=== PATIENT | female | born 1970 | race Caucasian/White ===

== ENCOUNTER → 2018-01-27 08:22 | Outpatient (CLI) | payer OTHER, SELFPAY ==
--- NOTE | 2018-01-27 | DI.US.S_ITS ---
ULTRASOUND OF LEFT BREAST: 01/27/2018 CLINICAL: Patient returns today to evaluate a density(mammo) in the left breast near palpable lump. Comparison is made to exams dated: 01/27/2018 mammogram, 06/27/2016 mammogram, and 08/25/2013 mammogram - [facility]. Real-time ultrasound of the left breast was performed on the area of interest. IMPRESSION: PROBABLY BENIGN - FOLLOW-UP RECOMMENDED There is no abnormality seen in the left breast to correspond with the palpable abnormality in the upper inner quadrant, however, clinical followup is recommended. There is no abnormality seen in the left breast to correspond with the mammographic density in the inner aspect. A follow-up mammogram in 6 months is recommended to demonstrate stability. This exam was interpreted at Station ID: [id number]. Electronically Signed By: Mani cueto/lotus:01/27/2018 16:00:59 letter sent: Followup Recommended Ultrasound BI-RADS: 3 Probably benign
--- NOTE | 2018-01-27 | DI.MG.S_ITS ---
BILATERAL DIGITAL DIAGNOSTIC MAMMOGRAM: 01/27/2018 CLINICAL: Left breast lump. Family history of breast cancer. Comparison is made to exams dated: 06/27/2016 mammogram, 08/25/2013 mammogram, and 01/31/2012 mammogram - [facility]. The tissue of both breasts is heterogeneously dense. This may lower the sensitivity of mammography. There is a 0.5 cm oval equal density asymmetry with an indistinct and circumscribed margin in the left breast anterior depth medial region seen on the craniocaudal view only. No other significant masses, calcifications, or other findings are seen in either breast. IMPRESSION: INCOMPLETE: NEEDS ADDITIONAL IMAGING EVALUATION The 0.5 cm oval equal density asymmetry in the left breast is indeterminate. An ultrasound is recommended. The right implant is partially collapsed. A clinical correlation is recommended for further evaluation of the right implant. The right implant shows extracapsular rupture. There is no abnormality seen in the left breast to correspond with the palpable abnormality in the upper inner quadrant, however, ultrasound is recommended. This exam was interpreted at Station ID: [id number]. NOTE: For mammograms, a report in lay terms will be sent to the patient. Approximately 15% of breast malignancies will not be visualized mammographically. In the management of a palpable breast mass, a negative mammogram must not discourage biopsy of a clinically suspicious lesion. Electronically Signed By: Mani cueto/lotus:01/27/2018 09:23:05 letter sent: Need Ultrasound ACR BI-RADS Category 0: Incomplete 3340F
== END ==
PROVIDERS: Family Provider Family Medicine; PCP Family Medicine; Visit Provider Nurse Practitioner Family
DX: R92.8 Other abnormal and inconclusive findings on diagnostic imaging of breast (principal); N63.20 Unspecified lump in the left breast, unspecified quadrant; Z80.3 Family history of malignant neoplasm of breast
CPT/HCPCS: 76642; 77066; G0279

== ENCOUNTER 2019-02-04 04:15 | Emergency (ER) | payer BC, SELFPAY ==
[2019-02-04 04:15] VITALS: BP 154/65; PULSE 68; RESP 18; O2SAT 98; BMI 27.1
--- NOTE | 2019-02-04 04:35 | DI.RAD.S_ITS ---
PROCEDURE: XR CHEST 1V INDICATIONS: chest pain TECHNIQUE: One view of the chest was acquired. COMPARISON: [facility], , CHEST 2 VIEW, 05/24/2010, 9:46. FINDINGS: Surgical changes and devices: None. Lungs and pleura: Lungs are clear. No pleural effusions or pneumothorax. Mediastinum: Mediastinal contours appear normal. Heart size is normal. Bones and chest wall: No suspicious bony lesions. Overlying soft tissues appear unremarkable. IMPRESSION: No acute cardiopulmonary disease process. Dictated by: Priya Montiel MD, PhD on 02/04/2019 at 9:48 Approved by: Priya Montiel MD, PhD on 02/04/2019 at 9:49
--- NOTE | 2019-02-04 04:46 | ED.CHESTPAIN ---
HPI - Chest Pain General Chief Complaint: Chest Pain Stated Complaint: chest pain Time Seen by Provider: 02/04/19 04:17 Source: patient and family Mode of arrival: ambulatory Limitations: no limitations History of Present Illness HPI narrative: 48-year-old female nonsmoker with very minimal medical history presents with a chief complaint of a burning sensation in her anterior chest with radiation to her left shoulder since yesterday at 9:30 a.m. in the morning. She denies any provocation or palliation of her symptoms. She is not dizzy nor weak or lightheaded. She denies any cough or shortness of breath. She has no nausea, vomiting or diarrhea. She denies any injuries or overuse syndromes. She denies any history of the same. She denies any history of blood clot, recent travel, trauma or history of exogenous estrogens, she currently complains only a very minimal sensation in her chest. Her symptoms started while at work yesterday morning MD complaint: chest pain Duration: intermittent and improved Onset: during rest Pain location: left chest Severity: mild Quality: other Pain radiation: LUE Relieving factors: nothing Exacerbating factors: nothing Treatments prior to arrival chest pain: none Related Data On Oral Contraceptives: No Allergies Allergy/AdvReac Type Severity Reaction Status Date / Time No Known Drug Allergies Allergy Verified 02/04/19 05:29 Review of Systems Constitutional Denies chills, Denies fever(s), Denies lethargy and Denies weakness Eyes Denies change in vision, Denies eye discharge, Denies irritation and Denies loss of vision ENT Ears, Nose, Mouth, and Throat: Denies change in voice, Denies neck pain and Denies sore throat Cardiovascular Reports chest pain, Denies irregular heart rhythm, Denies lightheadedness, Denies palpitations, Denies dyspnea, Denies dyspnea on exertion and Denies orthopnea Respiratory Denies cough, Denies dyspnea, Denies dyspnea on exertion and Denies wheezing Gastrointestinal Gastrointestinal: Denies abdominal pain, Denies change in bowel habits, Denies diarrhea, Denies nausea and Denies vomiting Genitourinary Denies hematuria, Denies flank pain, Denies urinary incontinence and Denies urinary urgency Musculoskeletal Denies neck pain Integumentary/Breasts Denies pruritus, Denies erythema, Denies rash and Denies wounds Neurologic Denies confusion, Denies loss of vision and Denies weakness Psychiatric Denies anxiety, Denies confusion, Denies depression, Denies homicidal ideation and Denies suicidal ideation Endocrine Denies palpitations Hematologic/Lymphatic Denies easy bruising Allergic/Immunologic Denies wheezing PFSH Social History Smoking Status: Never smoker Social History Smoking Status: Never smoker Exam Narrative Exam Narrative: GENERAL: 48-year-old female resting comfortably appears younger than stated age, a bit anxious but in no significant or obvious distress HEAD: Atraumatic. Normocephalic. No temporal or scalp tenderness. EYES: Pupils equal round and reactive. Extraocular motions intact. No scleral icterus. No injection or drainage. ENT: Nose without bleeding, purulent drainage or septal hematoma. Throat without erythema, tonsillar hypertrophy or exudate. Uvula midline. Airway patent. NECK: Trachea midline. No JVD or lymphadenopathy. Supple, nontender, no meningeal signs. CARDIOVASCULAR: Regular rate and rhythm without murmurs, gallops, or rubs. RESPIRATORY: Clear to auscultation. Breath sounds equal bilaterally. No wheezes, rales, or rhonchi. GASTROINTESTINAL: Abdomen soft, non-tender, nondistended. No hepato-splenomegaly, or palpable masses. No guarding. EXTREMITIES: No clubbing, cyanosis, or edema. No joint tenderness, effusion, or edema noted. BACK: Nontender without deformity or crepitance. No flank tenderness. NEURO: AOx3. SKIN: No rash or erythema. Initial Vital Signs Initial Vital Signs: Vital Signs Pulse Rate 68 02/04/19 04:15 Respiratory Rate 18 02/04/19 04:15 Blood Pressure 154/65 H 02/04/19 04:15 Pulse Oximetry 98 02/04/19 04:15 Scores HEART Score Heart Score history: Slightly Suspicious Heart Score EKG: Normal Heart Score Age: 45-64 years old Heart Score risk factors: No known risk factors Heart Score troponin: < or = to normal limit Heart Score Total: 1 PERC Score Age greater than or equal to 50 years: Yes Heart rate greater than or equal to 100 bpm: No Room Air O2 Sat less than 95%: No Unilateral leg swelling: No Recent trauma or surgery: No Hemoptysis: No Prior PE or DVT: No Hormone Use: No Total PERC Score: 1 Wells' Criteria for PE Clinical signs and symptoms of PE: No PE is #1 Dx or equally likely: No Heart rate > 100: No Immobilization at least 3 days or surg in previous 4 weeks: No History of PE or DVT: No Hemoptysis: No Malignancy w/Treatment within 6 months or palliative: No Wells' PE Score total: 0 Course Orders Ordered: ED Orders 02/04/19 EKG-12 Lead Stat 02/04/19 04:18 B Type Natriuretic Peptide Stat Complete Blood Count AUTO DIFF Stat Comprehensive Metabolic Panel Stat D Dimer Stat Lipase Stat Troponin & CK Cardiac Panel Stat 02/04/19 04:35 XR chest 1V Stat Discontinued Medications Aspirin (Aspirin Chew) 324 mg PO NOW ONE Stop: 02/04/19 04:36 Last Admin: 02/04/19 04:52 Dose: 324 mg Sodium Chloride (Normal Saline 0.9%) 1,000 mls @ 150 mls/hr IV CONT BABATUNDE Last Admin: 02/04/19 04:53 Dose: 150 mls/hr Ketorolac Tromethamine (Toradol) 15 mg IV NOW ONE Stop: 02/04/19 05:07 Last Admin: 02/04/19 05:00 Dose: Not Given Vital Signs - 8 hr 02/04/19 04:15 02/04/19 05:30 Pulse Rate 68 61 Respiratory Rate 18 13 Blood Pressure 154/65 H Blood Pressure [Right Arm] 123/78 Pulse Oximetry 98 95 MDM - Chest Pain Lab Data Result diagrams: 02/04/19 04:18 02/04/19 04:18 Lab Results 02/04/19 02/04/19 02/04/19 Range/Units 04:18 04:18 04:18 WBC 7.5 (4.5-11.0) X10^3/uL RBC 4.13 (4.0-5.2) X10^6/uL Hgb 13.6 (12.0-16.0) g/dL Hct 38.8 (36-46) % MCV 94.0 (80-100) fL MCH 32.9 (26-34) PG MCHC 35.0 (30-36) % RDW 12.3 (11.6-14.8) % Plt Count 367 (150-400) X10^3/uL Neut % (Auto) 57.9 (50-75) % Lymph % (Auto) 34.1 (25-40) % [place] % (Auto) 5.7 (3-14) % Eos % (Auto) 1.4 L (2-4) % Baso % (Auto) 0.9 (0-2) % Neut # (Auto) 4300 (4370-2331) /uL Lymph # (Auto) 2600 (3155-2930) /uL [place] # (Auto) 400 (0-900) /uL Eos # (Auto) 100 (0-450) /uL Baso # (Auto) 100 (0-100) /uL D-Dimer < 200 (<230) ng/mL Sodium 138 (137-145) mmol/L Potassium 4.1 (3.4-5.1) mmol/L Chloride 103 (98-107) mmol/L Carbon Dioxide 29 (22-32) mmol/L BUN 13 (7-17) mg/dL Creatinine 0.70 (0.52-1.04) mg/dL Estimated GFR > 60.0 (>60) mL/min BUN/Creatinine Ratio 18.6 (6-22) Glucose 91 (70-100) mg/dL Calcium 8.8 (8.4-10.2) mg/dL Total Bilirubin 0.4 (0.2-1.3) mg/dL AST 11 L (14-36) IU/L ALT 13 (9-52) IU/L Alkaline Phosphatase 56 (38-126) U/L Total Creatine Kinase 68 (30-135) U/L CK-MB (CK-2) TNP CK-MB (CK-2) Rel Index TNP Troponin I < 0.012 (0.01-0.034) ng/mL B-Natriuretic Peptide < 100 (<100) Total Protein 6.9 (6.3-8.2) g/dL Albumin 3.9 (3.5-5.0) g/dL Globulin 3.0 (1.7-4.1) g/dL Albumin/Globulin Ratio 1.3 (1.0-2.8) Lipase 96 (23-300) U/L ECG Data Attestation: I personally reviewed and interpreted this ECG as follows: Prior ECG tracings: not available for review Interpretation: EKG is normal sinus rhythm rate [69 ] and free of any signs of ischemia or ectopy. No ST segmental elevation or depression. No T wave inversions Discharge Plan Departure Patient Disposition: Home Clinical Impression: Atypical chest pain Discharge Date/Time: 02/04/19 05:55 Interventions: ED Discharge Assessment Last Done: 02/04/19 05:55 Instructions: DI for Atypical Chest Pain Activity Restrictions/Additional Instructions: *You have been diagnosed with [chest pain (heart attack, blood clot, pneumonia thought to be very unlikely)] *What to do: *Continue to take medications as directed *Follow up with your primary care provider in 2-3 days, call for an appointment. Let them know you were seen in the Emergency Department and that we ask that you be seen in follow up *Return to ER if you should have any new, worsening or concerning symptoms Referrals: Som Garcia MD [Primary Care Provider] -
[2019-02-04 04:48] LABS: Add Manual Diff / Slide Review NO; Basophils Absolute Auto 100 /uL (0-100); Basophils Percent Auto 0.9 % (0-2); Eosinophils Absolute Auto 100 /uL (0-450); Eosinophils Percent Auto 1.4 % (2-4); Hematocrit 38.8 % (36-46); Hemoglobin 13.6 g/dL (12.0-16.0); Lymphocytes Absolute Auto 2600 /uL (1100-4500); Lymphocytes Percent Auto 34.1 % (25-40); Mean Corpuscular Hemoglobin 32.9 PG (26-34); Monocytes Absolute Auto 400 /uL (0-900); Monocytes Percent Auto 5.7 % (3-14); Neutrophils Absolute Auto 4300 /uL (1500-7000); Neutrophils Percent Auto 57.9 % (50-75); Platelet Count 367 X10^3/uL (150-400); Red Blood Cell Count 4.13 X10^6/uL (4.0-5.2); Red Cell Distribution Width 12.3 % (11.6-14.8); White Blood Cell Count 7.5 X10^3/uL (4.5-11.0)
[2019-02-04 04:52] LABS: D Dimer < 200 ng/mL (<230)
[2019-02-04] MEDS: ASPIRIN 81 MG TAB 324 MG PO (04:52)
[2019-02-04 04:53] LABS: Alanine Aminotransferase 13 IU/L (9-52); Albumin 3.9 g/dL (3.5-5.0); Albumin Globulin Ratio 1.3 (1.0-2.8); Alkaline Phosphatase 56 U/L (38-126); Aspartate Aminotransferase 11 IU/L (14-36); BUN Creatinine Ratio 18.6 (6-22); Bilirubin Total 0.4 mg/dL (0.2-1.3); Blood Urea Nitrogen 13 mg/dL (7-17); Calcium 8.8 mg/dL (8.4-10.2); Carbon Dioxide 29 mmol/L (22-32); Chloride 103 mmol/L (98-107); Creatine Kinase 68 U/L (30-135); Estimated Glomerular Filt Rate > 60.0 mL/min (>60); Glucose 91 mg/dL (70-100); HEMOLYSIS < 15 (0-50); Lipase 96 U/L (23-300); Potassium 4.1 mmol/L (3.4-5.1); Sodium 138 mmol/L (137-145); Total Protein 6.9 g/dL (6.3-8.2)
[2019-02-04] MEDS: SODIUM CHLORIDE 0.9% 1,000 ML 150 ML IV (04:53)
[2019-02-04 05:04] LABS: Troponin I < 0.012 ng/mL (0.01-0.034)
[2019-02-04 05:09] LABS: B Type Natriuretic Peptide < 100 (<100)
[2019-02-04 05:30] VITALS: BP 123/78; PULSE 61; RESP 13; O2SAT 95
== END 2019-02-04 05:55 | disposition home or self-care (01) ==
PROVIDERS: Emergency Provider Emergency Medicine; Family Provider Family Medicine; PCP Family Medicine
DX: R07.89 Other chest pain (principal)
CPT/HCPCS: 71045; 80053; 82550; 83690; 83880; 84484; 85025; 85379; 93005; 93010; 96360; 99283; 99285

== ENCOUNTER → 2020-11-03 12:13 | Outpatient (CLI) | payer BC, SELFPAY ==
--- NOTE | 2020-11-03 12:14 | DI.MG.S_ITS ---
BILATERAL DIGITAL SCREENING MAMMOGRAM 3D/2D WITH CAD WITH AUGMENTATION: 11/03/2020 CLINICAL: Routine screening. Family history of breast cancer. Comparison is made to exams dated: 01/27/2018 mammogram, 06/27/2016 mammogram, 08/25/2013 mammogram, and 06/24/2007 mammogram - [facility]. The tissue of both breasts is heterogeneously dense. This may lower the sensitivity of mammography. Current study was also evaluated with a Computer Aided Detection (CAD) system. The previously seen asymmetry in the left breast anterior depth medial region seen on the craniocaudal view only is no longer apparent. Right breast implant is ruptured as before. Left implant is irregular as before. No other significant masses, calcifications, or other findings are seen in either breast. IMPRESSION: BENIGN There is no mammographic evidence of malignancy. Right breast implant rupture. Left implant is irregular and maybe be ruptured. If clinically indicated, implant breast MRI could be preformed for further evaluation. A 1 year screening mammogram is recommended. This exam was interpreted at Station ID: [id number]. NOTE: For mammograms, a report in lay terms will be sent to the patient. Approximately 15% of breast malignancies will not be visualized mammographically. In the management of a palpable breast mass, a negative mammogram must not discourage biopsy of a clinically suspicious lesion. Electronically Signed By: Ankit Lay M.D. slc/:11/03/2020 13:00:58 letter sent: Normal Exam ACR BI-RADS Category 2: Benign Finding(s) 3342F
== END ==
PROVIDERS: Family Provider Family Medicine; PCP Family Medicine; Referring Provider Family Medicine; Visit Provider Family Medicine
DX: Z12.31 Encounter for screening mammogram for malignant neoplasm of breast (principal); Z80.3 Family history of malignant neoplasm of breast
CPT/HCPCS: 77063; 77067

== ENCOUNTER 2021-12-11 07:34 | Emergency (ER) | payer BC, SELFPAY ==
[2021-12-11] VITALS (10 sets, daily range): BP systolic 118–146; BP diastolic 59–68; PULSE 61–68; RESP 16–18; TEMP 36.3; O2SAT 93–100
--- NOTE | 2021-12-11 07:49 | PC.NURSE ---
left pedal pulse palpable.
--- NOTE | 2021-12-11 07:55 | ED_ITS ---
HPI - Extremity Problem General Chief complaint: Extremity Injury, Lower Stated complaint: L Hip Injury Time Seen by Provider: 12/11/21 07:37 Source: patient Mode of arrival: Ambulatory History of Present Illness HPI Narrative: Patient is a 51-year-old female with history of depression anxiety presenting today after a fall in the shower. She says she is not sure how she did but did like off splits. She fell having left hip pain medial she has numbness and tingling in her toes. She denies hitting her head or losing consciousness. She has no nausea vomiting or chest pain. She says after she fell she felt dizzy. She was unable to get up on her own. She was given morphine by EMS which she thinks also made her a bit dizzy. She has pain in her medial thigh. No other injuries. She denies any chest pain palpitations abdominal pain or other surgeons. Related Data Home Medications Medication Instructions Recorded Confirmed atenolol 50 mg tablet 50 mg PO DAILY 12/17/19 01/12/20 cholecalciferol (vitamin D3) 100 4,000 unit PO DAILY 12/17/19 01/12/20 mcg (4,000 unit) capsule fluoxetine 40 mg capsule 40 mg PO DAILY 12/17/19 01/12/20 ranitidine HCl 150 mg capsule 150 mg PO DAILY 12/17/19 01/12/20 Previous Rx's Medication Instructions Recorded fluoxetine 20 mg capsule 20 mg PO DAILY #30 cap 12/17/19 cephalexin 500 mg capsule 500 mg PO BID 5 Days #10 cap 12/11/21 hydrocodone 5 mg-acetaminophen 325 1 tab PO Q6H PRN #10 tab 12/11/21 mg tablet Allergies Allergy/AdvReac Type Severity Reaction Status Date / Time No Known Drug Allergies Allergy Verified 01/12/20 15:36 seasonal Allergy Mild Uncoded 01/12/20 15:36 Review of Systems Review of Systems Narrative: GENERAL: Denies chills, fatigue, malaise, fever, sweats, travel HEENT: Denies sinus pain, ear pain, sore throat, difficulty swallowing, neck pain RESPIRATORY: Denies dyspnea, cough, wheezing, hemoptysis, sputum. CARDIOVASCULAR: Denies chest pain, palpitations, orthopnea, edema GASTROINTESTINAL: Denies nausea, vomiting, abdominal pain, diarrhea, constipation, melena. : Denies dysuria, frequency, incontinence, hematuria, urinary retention, flank pain. MUSCULOSKELETAL: See HPI SKIN: No rash, no erythema, no pruritus NEUROLOGIC: + dizziness Denies weakness headache, numbness, change in speech, confusion PSYCHIATRIC: No concerning psychosocial issues. 12 point review of systems is negative except for those stated above and HPI Patient History Social History Smoking Status: Never smoker Smoking Status: Never smoker alcohol intake frequency: 3 or more drinks per day Substance Use Type: does not use Exam Initial Vital Signs Initial Vital Signs: Vital Signs Pulse Oximetry 97 12/11/21 07:40 GENERAL: Alert the superior old female appears uncomfortable in no acute distress. HEENT: Head atraumatic,EOMI, pupils reactive, face symmetric, moist mucous membranes CARDIOVASCULAR: Regular rate and rhythm without murmurs, rubs or gallops. RESPIRATORY: Breath sounds equal bilaterally, no wheezes rales or rhonchi. ABDOMEN: Soft, nontender. Normoactive bowel sounds all 4 quadrants. No guarding or rebound. EXTREMITIES: Normal range of motion, no clubbing or edema. Neurovascularly intact Pain in left hip with flexion and rotation distal pedal pulse intact no shortness. Right hip within normal limits full range of motion NEUROLOGICAL: Alert and oriented x4. SKIN: Warm, dry, no laceration, no petechiae, no rashes or lesions. Course Orders Ordered: ED Orders 12/11/21 10:40 MR hip LT wo con Stat 12/11/21 11:05 Urine Culture Stat Urine Microscopic Stat Discontinued Medications Ketorolac Tromethamine (Ketorolac 30 Mg/Ml Vial) 15 mg IV NOW ONE Stop: 12/11/21 08:49 Last Admin: 12/11/21 09:16 Dose: 15 mg Documented by: IVET Morphine Sulfate (Morphine 2 Mg/Ml Inj) 2 mg IV NOW ONE Stop: 12/11/21 08:49 Last Admin: 12/11/21 09:16 Dose: 2 mg Documented by: IVET Vital Signs Vital signs: Vital Signs - 8 hr 12/11/21 11:56 Pulse Rate 65 Respiratory Rate 16 Blood Pressure 132/64 Pulse Oximetry 100 MDM - Extremity (Nontraumatic) Lab Data Result diagrams: 12/11/21 08:51 12/11/21 08:51 Labs: Lab Results 12/11/21 12/11/21 12/11/21 Range/Units 08:51 08:51 11:05 WBC 8.9 (4.5-11.0) X10^3/uL RBC 4.23 (4.0-5.2) X10^6/uL Hgb 13.6 (12.0-16.0) g/dL Hct 39.2 (36-46) % MCV 92.7 (80-100) fL MCH 32.2 (26-34) PG MCHC 34.7 (30-36) % RDW 12.8 (11.6-14.8) % Plt Count 359 (150-400) X10^3/uL Neut % (Auto) 79.8 H (50-75) % Lymph % (Auto) 14.7 L (25-40) % [place] % (Auto) 4.4 (3-14) % Eos % (Auto) 0.4 L (2-4) % Baso % (Auto) 0.7 (0-2) % Neut # (Auto) 7100 H (8729-9010) /uL Lymph # (Auto) 1300 (8525-4720) /uL [place] # (Auto) 400 (0-900) /uL Eos # (Auto) 0 (0-450) /uL Baso # (Auto) 100 (0-100) /uL Sodium 139 (137-145) mmol/L Potassium 4.1 (3.4-5.1) mmol/L Chloride 108 H (98-107) mmol/L Carbon Dioxide 26 (22-32) mmol/L BUN 15 (7-17) mg/dL Creatinine 0.74 (0.52-1.04) mg/dL Estimated GFR > 60 (>60) mL/min BUN/Creatinine Ratio 20.3 (6-22) Glucose 100 (70-100) mg/dL Calcium 8.7 (8.4-10.2) mg/dL Total Bilirubin 0.4 (0.2-1.3) mg/dL AST 18 (14-36) IU/L ALT 21 (<35) IU/L Alkaline Phosphatase 59 (38-126) U/L Total Protein 6.7 (6.3-8.2) g/dL Albumin 3.8 (3.5-5.0) g/dL Globulin 2.9 (1.7-4.1) g/dL Albumin/Globulin Ratio 1.3 (1.0-2.8) Urine RBC 10-30/hpf H (0-5/HPF) Urine WBC 5-10/hpf H (0-5/HPF) Ur Squamous Epith Cells 1-5 /hpf (0-5/HPF) Urine Bacteria Moderate (10-30) H (None) Ur Culture Indicated? Specimen cultured Urine Dip Bedside Urine Glucose Negative Bedside Urine Bilirubin - Negative Bedside Urine Ketone - Negative Urine Specific [place] 1.020 Bedside Urine Occult Blood +++ Bedside Urine pH 6.0 Bedside Urine Protein +/- 15 Bedside Urine Urobilinogen 0.2 Bedside Urine Nitrite - Negative Bedside Urine Leukocytes + 70 Esterase Imaging Data Extremity x-ray #1: Radiologist's Impression: Ankit Wetzel MR#: [id number] : 1970 Acct:[id number] Age/Sex: 51 / F Date of Service: 12/11/21 Loc: ED Accession Number: [id number] ?? Procedure: XR hip w pel if done LT 2V Ordering Provider: Batool Ye D.O. PROCEDURE:? XR HIP W PEL IF DONE LT 2V ? INDICATIONS:? fall pain medial ? TECHNIQUE:? AP pelvis with lateral view(s) of the left hip(s).? ? COMPARISON:? None. ? FINDINGS:? ? Bones:? No fractures or dislocations.? Pelvic ring appears intact.? Right worse than left bilateral hip joint osteoarthritic changes are seen.? No evidence of avascular necrosis of femoral head.? No suspicious bony lesions.? ? Soft tissues:? The visualized bowel gas pattern is normal.? No suspicious soft tissue calcifications.? ? ? IMPRESSION:? No acute left hip fracture or dislocation.? Bilateral hip joint osteoarthritis.? No evidence of avascular necrosis of femoral head. ? ? ? Dictated by: Sánchez Crowley M.D. on 12/11/2021 at 8:38 ? ? CT PELVIS: Radiologist's Impression: Ankit Wetzel MR#: [id number] : 1970 Acct:[id number] Age/Sex: 51 / F Date of Service: 12/11/21 Loc: ED Accession Number: [id number] ?? Procedure: CT pelvis wo con Ordering Provider: Batool Ye D.O. PROCEDURE:? CT PEL WO CON ? INDICATIONS:? left hip pain ? TECHNIQUE:? Noncontrast 3 mm axial sections acquired through the bony pelvis, with coronal and sagittal reformatting.? ? COMPARISON:? None. ? FINDINGS:? Image quality:? Excellent.? ? Bones:? There is a small avulsion fragment off the lesser trochanter of the left hip.? There is a question of a very subtle base of femoral neck fracture. ? Soft tissues:? Unremarkable ? ? IMPRESSION:? ? 1. Question of very subtle base of left femoral neck fracture ? 2. Small avulsion fragment off lesser trochanter of the left hip. ? Comment:? Recommend left hip MRI to evaluate the possible femoral neck fracture.? Dictated by: Blaine Trejo M.D. on 12/11/2021 at 9:16 ? ? MR hip: Radiologist's Impression: t: Ankit Wetzel MR#: [id number] : 1970 Acct:[id number] Age/Sex: 51 / F Date of Service: 12/11/21 Loc: ED Accession Number: [id number] ?? Procedure: MR hip LT wo con Ordering Provider: Batool Ye D.O. PROCEDURE:? MR HIP LT WO CON ? INDICATIONS:? ? femoral neck fx ? TECHNIQUE:? Noncontrast coronal T1 spin echo and STIR through the bony pelvis.? Coronal and axial T2 fast spin echo with fat saturation, sagittal T1 spin echo, and oblique axial T2 fast spin echo with fat saturation through the hip.? ? COMPARISON:? [facility], CR, XR HIP W PEL IF DONE LT 2V, 12/11/2021, 7:50.? [facility], CT, CT PEL WO CON, 12/11/2021, 8:54. ? FINDINGS:? Image quality:? Excellent.? ? Bones and joints:? There is mild left hip joint osteoarthritis.? No marrow edema.? No intraosseous lesions or fractures.? No avascular necrosis of the femoral heads.? Slight prominence of left superior femoral head neck junction is noted with subtle subcortical edema which can be seen associated with CAM type femoral acetabular impingement.? The visualized lower lumbar spine appears normally aligned.? ? Tendons and ligaments:? The gluteus medius and minimus tendinosis at their insertion on greater trochanter is seen, without associated muscle atrophy.? The nearby proximal iliotibial band also appears intact.? The iliopsoas tendon appears intact, without adjacent bursal fluid collections or evidence for impingement syndrome.? Tendinosis involving origin of hamstring tendons at the ischial tuberosity is also seen.? The straight and reflected heads of the rectus femoris muscle origin appear intact, as well as the conjoint tendon.? The ligamentum teres appears intact where visualized.? ? Labrum and cartilage:? There is no obvious left hip labral tear.? Cartilage surface of the femoral head appears of normal thickness.? The alpha angle of the femur is within normal limits at less than 55 degrees.? ? Soft tissues:? Visualized muscles demonstrate normal bulk and internal signal.? Quadratus femoris muscle demonstrates no internal edema to suggest ischiofemoral impingement.? The proximal sciatic neurovascular bundle appears normal adjacent to the hamstring tendons.? No free pelvic fluid.? Bladder wall thickness is normal.? Genitourinary structures and bowel loops appear normal where visualized.? ? IMPRESSION:? 1. No acute left hip fracture or dislocation.? CT finding of subtle linear lucency in intertrochanteric region likely represent nutrient vessel. 2. Left hip joint osteoarthritis.? No evidence of avascular necrosis of femoral head. 3.? Distal left gluteus medius and minimus tendinosis.? Tendinosis and low-grade partial-thickness tear involving common origin of hamstring tendons at ischial tuberosity.? No other muscle or tendon signal abnormality. 4.? No obvious left hip labral tear. ? ? Dictated by: Sánchez Crowley M.D. on 12/11/2021 at 11:23? [facility] Narrative Medical decision making narrative: Patient is having significant left medial thigh and groin pain. Initial x-ray negative CT shows questionable femoral neck fracture. 1035 Dr. Castillo orthopedics has been updated patient's symptoms test results has reviewed imaging herself recommend MRI, if true of femoral neck fracture will need surgery however, if no fracture can weight bear as tolerated with pain cont rol. MRI shows hamstring tear, no fracture, at this time can weightbear as tolerated she has gone up to the restroom. Pain is actually much better after Toradol. He is also found have a UTI but no sepsis. Blood work is overall reassuring Discharge Plan Departure Patient Disposition: Home Clinical Impression: Hamstring tear, Closed fracture of lesser trochanter of femur, UTI (urinary tract infection) Instructions: DI for Urinary Tract Infection (UTI), DI for Groin Strain Activity Restrictions/Additional Instructions: *You have been diagnosed with hamstring tear, lesser trochanter fracture *What to do: Increase activity as tolerated use crutches and weight bear as tolerated. May go to work if you feel up for. He will need to follow-up with orthopedics. *Continue to take medications as directed--> [facility] [place] Keflex 500 mg twice a day for 5 days [place] 1 tablet every 6 hours if needed for severe pain Ibuprofen 600 mg every 6 hours if needed for [id number] pain *Follow up with your primary care provider in 2-3 days or call [phone] Castillo, orthopedics tomorrow to schedule follow-up appointment *Return to ER if you should have increasing pain, weakness numbness tingling orany new, worsening or concerning symptoms CONTROLLED SUBSTANCE DISCHARGE (Narcotoic/benzodiazepine/Flexeril/Phenergan) 1. You have been prescribed narcotic medications, it does have acetaminophen/Tylenol/paracetamol in it, DO NOT TAKE MORE THAN 4,00mg in 24 hours of Tylenol. TRAMADOL DOES NOT CONTAIN TYLENOL 2. Please understand that we cannot provide further refills of narcotics, benzodiazepines or controlled substances through the ED and her pain management will need to be through your provider. 3. While on these medications you cannot drive or operate heavy machinery. 4. You cannot sign legal documents or perform any duties such as this. 5. As long as you're taking opiate pain medications he should also be taking a stool softener such as Colace, Dulcolax, MiraLAX or prune juice, to help avoid constipation. Prescriptions: New hydrocodone-acetaminophen 5-325 mg tablet 1 tab PO Q6H PRN (Reason: pain) Qty: 10 0RF cephalexin 500 mg capsule 500 mg PO BID 5 Days Qty: 10 0RF No Action fluoxetine 40 mg capsule 40 mg PO DAILY 0RF atenolol 50 mg tablet 50 mg PO DAILY 0RF ranitidine HCl 150 mg capsule 150 mg PO DAILY 0RF cholecalciferol (vitamin D3) 4,000 unit capsule 4,000 unit PO DAILY 0RF fluoxetine 20 mg capsule 20 mg PO DAILY Qty: 30 3RF Rx Instructions: take with 40 mg capsule for total daily dose of 60 mg Referrals: Som Garcia MD [Primary Care Provider] - Shelby Castillo MD [Physician] - Stand Alone Forms: Work Release Note
--- NOTE | 2021-12-11 07:55 | DI.RAD.S_ITS ---
PROCEDURE: XR HIP W PEL IF DONE LT 2V INDICATIONS: fall pain medial TECHNIQUE: AP pelvis with lateral view(s) of the left hip(s). COMPARISON: None. FINDINGS: Bones: No fractures or dislocations. Pelvic ring appears intact. Right worse than left bilateral hip joint osteoarthritic changes are seen. No evidence of avascular necrosis of femoral head. No suspicious bony lesions. Soft tissues: The visualized bowel gas pattern is normal. No suspicious soft tissue calcifications. IMPRESSION: No acute left hip fracture or dislocation. Bilateral hip joint osteoarthritis. No evidence of avascular necrosis of femoral head. Dictated by: Sánchez Crowley M.D. on 12/11/2021 at 8:38 Approved by: Sánchez Crowley M.D. on 12/11/2021 at 8:39
--- NOTE | 2021-12-11 08:48 | DI.CT.S_ITS ---
PROCEDURE: CT PEL WO CON INDICATIONS: left hip pain TECHNIQUE: Noncontrast 3 mm axial sections acquired through the bony pelvis, with coronal and sagittal reformatting. COMPARISON: None. FINDINGS: Image quality: Excellent. Bones: There is a small avulsion fragment off the lesser trochanter of the left hip. There is a question of a very subtle base of femoral neck fracture. Soft tissues: Unremarkable IMPRESSION: 1. Question of very subtle base of left femoral neck fracture 2. Small avulsion fragment off lesser trochanter of the left hip. Comment: Recommend left hip MRI to evaluate the possible femoral neck fracture. Dictated by: Blaine Trejo M.D. on 12/11/2021 at 9:16 Approved by: Blaine Trejo M.D. on 12/11/2021 at 9:19
[2021-12-11 08:58] LABS: Add Manual Diff / Slide Review NO; Basophils Absolute Auto 100 /uL (0-100); Basophils Percent Auto 0.7 % (0-2); Eosinophils Absolute Auto 0 /uL (0-450); Eosinophils Percent Auto 0.4 % (2-4); Hematocrit 39.2 % (36-46); Hemoglobin 13.6 g/dL (12.0-16.0); Lymphocytes Absolute Auto 1300 /uL (1100-4500); Lymphocytes Percent Auto 14.7 % (25-40); Mean Corpuscular HGB Conc 34.7 % (30-36); Mean Corpuscular Hemoglobin 32.2 PG (26-34); Mean Corpuscular Volume 92.7 fL (80-100); Monocytes Absolute Auto 400 /uL (0-900); Monocytes Percent Auto 4.4 % (3-14); Neutrophils Absolute Auto 7100 /uL (1500-7000); Neutrophils Percent Auto 79.8 % (50-75); Platelet Count 359 X10^3/uL (150-400); Red Blood Cell Count 4.23 X10^6/uL (4.0-5.2); Red Cell Distribution Width 12.8 % (11.6-14.8); White Blood Cell Count 8.9 X10^3/uL (4.5-11.0)
[2021-12-11] MEDS: KETOROLAC 30 MG/ML VIAL 15 MG IV (09:16)
[2021-12-11] MEDS: MORPHINE 2 MG/ML INJ IV (09:16)
[2021-12-11 09:19] LABS: Alanine Aminotransferase 21 IU/L (<35); Albumin 3.8 g/dL (3.5-5.0); Albumin Globulin Ratio 1.3 (1.0-2.8); Alkaline Phosphatase 59 U/L (38-126); Aspartate Aminotransferase 18 IU/L (14-36); BUN Creatinine Ratio 20.3 (6-22); Bilirubin Total 0.4 mg/dL (0.2-1.3); Blood Urea Nitrogen 15 mg/dL (7-17); Calcium 8.7 mg/dL (8.4-10.2); Carbon Dioxide 26 mmol/L (22-32); Chloride 108 mmol/L (98-107); Estimated Glomerular Filt Rate > 60 mL/min (>60); Globulin 2.9 g/dL (1.7-4.1); Glucose 100 mg/dL (70-100); HEMOLYSIS < 15 (0-50); Potassium 4.1 mmol/L (3.4-5.1); Sodium 139 mmol/L (137-145); Total Protein 6.7 g/dL (6.3-8.2)
--- NOTE | 2021-12-11 10:40 | DI.MRI.S_ITS ---
PROCEDURE: MR HIP LT WO CON INDICATIONS: ? femoral neck fx TECHNIQUE: Noncontrast coronal T1 spin echo and STIR through the bony pelvis. Coronal and axial T2 fast spin echo with fat saturation, sagittal T1 spin echo, and oblique axial T2 fast spin echo with fat saturation through the hip. COMPARISON: [facility], CR, XR HIP W PEL IF DONE LT 2V, 12/11/2021, 7:50. [facility], CT, CT PEL WO CON, 12/11/2021, 8:54. FINDINGS: Image quality: Excellent. Bones and joints: There is mild left hip joint osteoarthritis. No marrow edema. No intraosseous lesions or fractures. No avascular necrosis of the femoral heads. Slight prominence of left superior femoral head neck junction is noted with subtle subcortical edema which can be seen associated with CAM type femoral acetabular impingement. The visualized lower lumbar spine appears normally aligned. Tendons and ligaments: The gluteus medius and minimus tendinosis at their insertion on greater trochanter is seen, without associated muscle atrophy. The nearby proximal iliotibial band also appears intact. The iliopsoas tendon appears intact, without adjacent bursal fluid collections or evidence for impingement syndrome. Tendinosis involving origin of hamstring tendons at the ischial tuberosity is also seen. The straight and reflected heads of the rectus femoris muscle origin appear intact, as well as the conjoint tendon. The ligamentum teres appears intact where visualized. Labrum and cartilage: There is no obvious left hip labral tear. Cartilage surface of the femoral head appears of normal thickness. The alpha angle of the femur is within normal limits at less than 55 degrees. Soft tissues: Visualized muscles demonstrate normal bulk and internal signal. Quadratus femoris muscle demonstrates no internal edema to suggest ischiofemoral impingement. The proximal sciatic neurovascular bundle appears normal adjacent to the hamstring tendons. No free pelvic fluid. Bladder wall thickness is normal. Genitourinary structures and bowel loops appear normal where visualized. IMPRESSION: 1. No acute left hip fracture or dislocation. CT finding of subtle linear lucency in intertrochanteric region likely represent nutrient vessel. 2. Left hip joint osteoarthritis. No evidence of avascular necrosis of femoral head. 3. Distal left gluteus medius and minimus tendinosis. Tendinosis and low-grade partial-thickness tear involving common origin of hamstring tendons at ischial tuberosity. No other muscle or tendon signal abnormality. 4. No obvious left hip labral tear. Dictated by: Sánchez Crowley M.D. on 12/11/2021 at 11:23 Approved by: Sánchez Crowley M.D. on 12/11/2021 at 11:32
[2021-12-11 11:39] LABS: Bacteria Urine Moderate (10-30); Culture Indicated Urine Specimen Cultured; RBC Urine 10-30/HPF (0-5/HPF); Squamous Epithelial Cell Urine 1-5 /HPF (0-5/HPF); WBC Urine 5-10/HPF (0-5/HPF)
== END 2021-12-11 12:44 | disposition home or self-care (01) ==
PROVIDERS: Emergency Provider Emergency Medicine; Family Provider Family Medicine; PCP Family Medicine
DX: S76.312A Strain of muscle, fascia and tendon of the posterior muscle group at thigh level, left thigh, initial encounter (principal); S72.122A Displaced fracture of lesser trochanter of left femur, initial encounter for closed fracture; N39.0 Urinary tract infection, site not specified; W18.2XXA Fall in (into) shower or empty bathtub, initial encounter
CPT/HCPCS: 72192; 73502; 73721; 80053; 81003; 81015; 85025; 87077; 87086; 87147; 93005; 93010; 96374; 96375; 99284; 99285; J1885; J2270

== ENCOUNTER → 2022-04-24 16:33 | Outpatient (CLI) | payer BC, SELFPAY ==
[2022-04-24 18:00] LABS: Add Manual Diff / Slide Review NO; Basophils Absolute Auto 100 /uL (0-100); Basophils Percent Auto 0.9 % (0-2); Eosinophils Absolute Auto 100 /uL (0-450); Eosinophils Percent Auto 0.9 % (2-4); Hematocrit 38.6 % (36-46); Hemoglobin 13.6 g/dL (12.0-16.0); Lymphocytes Absolute Auto 2400 /uL (1100-4500); Lymphocytes Percent Auto 32.2 % (25-40); Mean Corpuscular HGB Conc 35.2 % (30-36); Mean Corpuscular Volume 90.8 fL (80-100); Monocytes Absolute Auto 400 /uL (0-900); Monocytes Percent Auto 5.4 % (3-14); Neutrophils Absolute Auto 4500 /uL (1500-7000); Neutrophils Percent Auto 60.6 % (50-75); Platelet Count 343 X10^3/uL (150-400); Red Blood Cell Count 4.25 X10^6/uL (4.0-5.2); Red Cell Distribution Width 12.5 % (11.6-14.8); White Blood Cell Count 7.3 X10^3/uL (4.5-11.0)
[2022-04-24 18:09] LABS: Alanine Aminotransferase 19 IU/L (<35); Albumin 4.2 g/dL (3.5-5.0); Albumin Globulin Ratio 1.2 (1.0-2.8); Alkaline Phosphatase 60 U/L (38-126); Aspartate Aminotransferase 14 IU/L (14-36); BUN Creatinine Ratio 28.8 (6-22); Bilirubin Total 0.3 mg/dL (0.2-1.3); Blood Urea Nitrogen 23 mg/dL (7-17); Calcium 9.8 mg/dL (8.4-10.2); Carbon Dioxide 30 mmol/L (22-32); Chloride 99 mmol/L (98-107); Cholesterol 221 mg/dL (140-199); Estimated Glomerular Filt Rate > 60 mL/min (>60); Globulin 3.4 g/dL (1.7-4.1); Glucose 92 mg/dL (70-100); HDL Cholesterol 48 mg/dL (40-60); HEMOLYSIS < 15 (0-50); LDL Cholesterol Calculated 147 mg/dL (<100); Potassium 3.8 mmol/L (3.4-5.1); Sodium 138 mmol/L (137-145); Total Protein 7.6 g/dL (6.3-8.2); Triglycerides 131 mg/dL (35-150)
[2022-04-24 18:38] LABS: Thyroid Stimulating Hormone 3.17 uIU/mL (0.47-4.68)
== END ==
PROVIDERS: Family Provider Family Medicine; PCP Family Medicine; Referring Provider Family Medicine; Visit Provider Family Medicine
DX: I10 Essential (primary) hypertension (principal); Z00.00 Encounter for general adult medical examination without abnormal findings
CPT/HCPCS: 36415; 80053; 80061; 84443; 85025

== ENCOUNTER → 2022-08-07 15:17 | Outpatient (CLI) | payer BC, SELFPAY ==
--- NOTE | 2022-08-07 15:20 | DI.MG.S_ITS ---
BILATERAL DIGITAL SCREENING MAMMOGRAM 3D/2D WITH CAD WITH AUGMENTATION: 08/07/2022 CLINICAL: Patient presents for routine screening. S/P bilateral augmentation. Comparison is made to exams dated: 11/03/2020 mammogram, 01/27/2018 mammogram, and 06/27/2016 mammogram - [facility]. Both breasts are heterogeneously dense, which may obscure small masses (category c / 51-75% glandular tissue). Current study was also evaluated with a Computer Aided Detection (CAD) system. No significant masses, calcifications, or other findings are seen in either breast. There has been no significant interval change. IMPRESSION: NEGATIVE There is no mammographic evidence of malignancy. A 1 year screening mammogram is recommended. Based on Tyrer-Cuzick model (a risk assessment model), the patient's lifetime risk is 20.1% and her 10 year risk is 6.0%. If a patient has an elevated risk, a more comprehensive evaluation should be considered and/or a referral to a genetic counselor. The [place] [employer], [employer], and NCCN Guidelines advise the consideration of Breast MRI as an adjunct to screening mammography in patients whose Lifetime risk to develop breast cancer is 20% or higher. This exam was interpreted at Station ID: [id number]. NOTE: For mammograms, a report in lay terms will be sent to the patient. Approximately 15% of breast malignancies will not be visualized mammographically. In the management of a palpable breast mass, a negative mammogram must not discourage biopsy of a clinically suspicious lesion. Electronically Signed By: Venkat Schmitt M.D., jr/lotus:08/08/2022 12:52:24 letter sent: Normal Exam ACR BI-RADS Category 1: Negative [id number]
== END ==
PROVIDERS: Family Provider Family Medicine; PCP Family Medicine; Referring Provider Family Medicine; Visit Provider Plastic Surgery
DX: Z12.31 Encounter for screening mammogram for malignant neoplasm of breast (principal); Z98.82 Breast implant status
CPT/HCPCS: 77063; 77067